=== PATIENT | male | born 1975 | race Caucasian/White ===

== ENCOUNTER 2024-01-07 12:27 | Emergency (ER) | payer OTHER ==
[~2024-01-07] VITALS: Ht 172.7 cm; Wt 70.3 kg
[2024-01-07] MEDS ORDERED: GENT5DRO23 EACHEYE (12:34)
[2024-01-07 12:42] VITALS: BP 134/70; TEMP 98.4; O2SAT 100
== END 2024-01-07 12:42 ==
LOC: ER 12:37
DX: H11.32 Conjunctival hemorrhage, left eye (principal); H10.9 Unspecified conjunctivitis; E11.9 Type 2 diabetes mellitus without complications